=== PATIENT | female | born 1990 ===

== ENCOUNTER 2018-06-03 15:09 | Emergency (ER) | payer MEDICAID, OTHER ==
[2018-06-03 15:16] VITALS: O2SAT 99
[2018-06-03] MEDS ORDERED: Tetracaine 0.5% Ophth (OR ONLY) ONE (15:35)
[2018-06-03] MEDS ORDERED: Fluorescein 1 mg Ophthalmic Strip OU ONE (15:42)
[2018-06-03] MEDS ORDERED: Oxycodone/Acetaminophen 5/325 mg Tab PO STA (15:42)
[2018-06-03] MEDS ORDERED: Fluorescein 1 mg Ophthalmic Strip ONE (15:44)
[2018-06-03] MEDS ORDERED: Tetracaine 0.5% Ophth 2 ML BOTTLE OU ONE (15:44)
--- NOTE | 2018-06-03 15:56 | C.PDOC ---
History Of Present Illness 27 yo female come in for evaluation of B/L eye pain, light sensitivity gradually developed since this AM. Pt admits, was wearing contacts yesterday, removed last night. Otherwise, pt denies fever, chills, recent illness, headache , dizziness, FB sensation, denies any other active complaints. Ambulate to Ed for evaluation, appears in pain. Time Seen by Provider: 06/03/18 15:13 Chief Complaint (Nursing): Eye Problem History Per: Patient Onset/Duration Of Symptoms: Gradual Past Medical History Reviewed: Historical Data, Nursing Documentation, Vital Signs Vital Signs: Last Vital Signs Temp 98.3 F 06/03/18 16:03 Pulse 89 06/03/18 16:03 Resp 20 06/03/18 16:03 BP 181/103 H 06/03/18 16:03 Pulse Ox 99 06/03/18 16:04 - Medical History PMH: No Chronic Diseases Surgical History: Tonsillectomy Family History: States: No Known Family Hx - Social History Hx Alcohol Use: Yes Hx Substance Use: No - Immunization History Hx Tetanus Toxoid Vaccination: Yes Hx Influenza Vaccination: No Hx Pneumococcal Vaccination: No Review Of Systems Except As Marked, All Systems Reviewed And Found Negative. Constitutional: Negative for: Fever, Chills Eyes: Positive for: Pain, Conjunctivae Inflammation, Other (severe light sensitivity). Negative for: Vision Change ENT: Negative for: Ear Discharge, Nose Discharge, Mouth Pain, Throat Pain Cardiovascular: Negative for: Chest Pain, Palpitations Respiratory: Negative for: Cough, Shortness of Breath, Wheezing Gastrointestinal: Negative for: Nausea, Vomiting, Abdominal Pain Musculoskeletal: Negative for: Neck Pain, Back Pain Skin: Negative for: Rash Neurological: Negative for: Weakness, Numbness, Altered Mental Status, Headache , Dizziness Physical Exam - Physical Exam Appears: Well, Non-toxic, No Acute Distress Skin: Normal Color, Warm, Dry, No Rash Head: Normacephalic Eye(s): bilateral: PERRL, EOMI (no pain or limitation on extraocular movement B/ L), Other (B/L tearing and severe light sensitivity, (+) fluoresceine uptake B/ L at 5-6 o'clock. NO corneal FB. No periorbital edema or erythema.) Ear(s): Bilateral: Normal Nose: No Flaring, No Discharge, No Deformity, No Tenderness Oral Mucosa: Moist Tongue: Normal Appearing Lips: Normal Appearing Throat: No Erythema, No Drooling Neck: Trachea Midline, Supple Lymphatic: No Adenopathy (cervical) Extremity: Normal ROM, No Deformity, No Swelling Neurological/Psych: Oriented x3, Normal Speech ED Course And Treatment O2 Sat by Pulse Oximetry: 99 Pulse Ox Interpretation: Normal Progress Note: On re-evaluation, pt is afebrile, hemodynamicaly stable. NOn- toxic. PulsEOx 99% RA. B/L eyes: exam c/w corneal abrasion B/L, no pain or limitation on extraocular movement, no periorbital edema or erythema, No corneal FB. ENT: no acute findings. neck: SUpple, (-) JVD. Neuorlogicaly intact. After tetracaine opht qtt applied, pt reports moderate improvement in pain. EYe patches applied B/L. Pt instructed and was discharged with family member, who is at bedside, for further eval and tx by opht. return if any new changes. Disposition Counseled Patient/Family Regarding: Diagnosis, Need For Followup, Rx Given - Disposition Referrals: Steffen Webber [Staff Provider] - Disposition: HOME/ ROUTINE Disposition Time: 15:56 Condition: STABLE Additional Instructions: Avoid use of contacts for 1 week Take medication as prescribed Follow up with Ophthalmology in 2-3 days for re-evaluation. return to ED if any worsening or new changes. Prescriptions: Neomycin/Polymyxin/Dexamethaso [Dexamethasone/Neomycin/Polymyxin 5 Ml] 2 drop BOTHEYES Q6 #1 bottle traMADol [Ultram] 50 mg PO TID #7 tab Instructions: Corneal Abrasion Forms: [facility] ([place] Islander) - Clinical Impression Clinical Impression: Corneal abrasion
[2018-06-03] MEDS ORDERED: Oxycodone/Acetaminophen 5/325 mg Tab ONE (15:59)
[2018-06-03 16:05] VITALS: RESP 20
[2018-06-03 16:24] VITALS: BP 115/73; PULSE 68; TEMP 98.5
== END 2018-06-03 16:03 | disposition home or self-care (01) ==
LOC: C.ER 15:09
DX: S05.02XA Injury of conjunctiva and corneal abrasion without foreign body, left eye, initial encounter (principal); S05.01XA Injury of conjunctiva and corneal abrasion without foreign body, right eye, initial encounter; X58.XXXA Exposure to other specified factors, initial encounter; Y92.9 Unspecified place or not applicable

== ENCOUNTER 2019-01-21 15:34 | Emergency (ER) | payer MEDICAID, OTHER ==
[2019-01-21] MEDS ORDERED: Tdap Vaccine 0.5 ml Vial (10-64 yrs) IM ONE ×2 (15:57→16:08)
--- NOTE | 2019-01-21 17:28 | RAD ---
PROCEDURE: Radiographs of the left elbow. HISTORY: glass cut, eval for fb COMPARISON: None available. FINDINGS: BONES: No acute displaced fracture. JOINTS: No dislocation. SOFT TISSUES: Several bubbles of air are noted within the subcutaneous soft tissues of the forearm and wrist presumably due to reported laceration. Nonspecific 4 mm hyperdensity within the soft tissues of the medial ventral forearm seen solely on lateral view of uncertain significance. JOINT EFFUSION: No significant joint effusion. OTHER FINDINGS: None IMPRESSION: Several bubbles of air are noted within the subcutaneous soft tissues of the forearm and wrist presumably due to reported laceration. Correlate clinically. Nonspecific 4 mm hyperdensity within the soft tissues of the medial ventral forearm seen solely on lateral view of uncertain significance.
[2019-01-21] MEDS ORDERED: Lidocaine 1% Inj (20ml) INFIL ONE (17:46)
[2019-01-21] MEDS ORDERED: Lidocaine Hydrochloride 5 ML INJ ONE (17:55)
--- NOTE | 2019-01-21 18:16 | C.PDOC ---
History Of Present Illness 28 y/o female presents to ED with laceration to left anterior distal forearm, occurred approximately one hour prior to arrival. pt sts she cut it on glass but refuses to give any further details. pt denies trying to hurt herself. pt accompanied by . last tdap unknown. Time Seen by Provider: 01/21/19 15:45 Chief Complaint (Nursing): Abnormal Skin Integrity History Per: Patient History/Exam Limitations: no limitations Onset/Duration Of Symptoms: Hrs (1) Current Symptoms Are (Timing): Still Present Location Of Injury: Left: Forearm Quality Of Symptoms: Painful Severity: Moderate Past Medical History Reviewed: Historical Data, Nursing Documentation, Vital Signs Vital Signs: Last Vital Signs Temp 98.1 F 01/21/19 15:38 Pulse 78 01/21/19 15:38 Resp 18 01/21/19 15:38 BP 119/74 01/21/19 15:38 Pulse Ox 99 01/21/19 15:38 - Medical History PMH: No Chronic Diseases Surgical History: Tonsillectomy Family History: States: Unknown Family Hx - Social History Hx Alcohol Use: No Hx Substance Use: No - Immunization History Hx Tetanus Toxoid Vaccination: Yes Hx Influenza Vaccination: No Hx Pneumococcal Vaccination: No Review Of Systems Constitutional: Negative for: Fever, Chills Skin: Positive for: Other (laceration left forearm) Physical Exam - Physical Exam Appears: Non-toxic, Other (anxious,. tearful) Skin: Warm, Dry, Other (approx 1 -1.5 cm jagged vertically oriented laceration to distal anterior left forearm. no active bleeding. ) Head: Atraumatic, Normacephalic Extremity: Normal ROM, Other (left upper extremity- able to flex and extend all fingers. cap refill less than 2 seconds. ) Pulses: Left Radial: Normal Neurological/Psych: Oriented x3, Normal Speech, Normal Cognition ED Course And Treatment O2 Sat by Pulse Oximetry: 99 Laceration - Laceration Repair left forearm Wound Length (In cm): 1.0 Description Of Wound: Linear Anesthesia: Lidocaine 1% Wound Examination: Irrigated With Saline, No FB With Wound Exploration, No Tendon Injury With Wound Exploration Wound Closure: Suture (3-0 nylon) Suture Technique And Material Used: Interrupted (#3) Wound Complexity: Simple Medical Decision Making Medical Decision Making: pt was initially given tylenol for pain; while waiting for xray results, pt persistently crying and moaning in pain. pt was offered by toradol and motrin (after a ucg was done) but declines. xray reviewed; 4 mm ?fb noted in mid forearm; this is superior to where laceration is and doesn't seem to be related. 1810 approached patient to perform laceration repair and she doesn't want me to do it; advised she will need to wait for another provider to come in at 7 pm. . Disposition Counseled Patient/Family Regarding: Studies Performed, Diagnosis, Need For Followup - Disposition Disposition: HOME/ ROUTINE Disposition Time: 20:01 Condition: GOOD Additional Instructions: Keep wound clean and dry. Wash and dry daily, apply antibiotic ointment and cover with dressing. Suture removal in 10-14 days. Return to ER for any sign of infection. Forms: [facility] (Urdu), General Discharge Instructions, Work Excuse - Clinical Impression Clinical Impression: Laceration of left forearm without complication
[2019-01-21] MEDS ORDERED: Bacitracin 500 Units/gm Oint Foilpak UD ONE (19:52)
[2019-01-21 20:12] VITALS: BP 103/68; PULSE 69; RESP 20; TEMP 98.5; O2SAT 98
== END 2019-01-21 20:19 | disposition home or self-care (01) ==
LOC: C.ER 15:34
DX: S51.812A Laceration without foreign body of left forearm, initial encounter (principal); W25.XXXA Contact with sharp glass, initial encounter; Z23 Encounter for immunization

== ENCOUNTER 2019-02-04 21:25 | Emergency (ER) | payer SELFPAY ==
[2019-02-04 21:48] VITALS: BP 100/63; PULSE 80; RESP 20; TEMP 98.3; O2SAT 98
--- NOTE | 2019-02-04 22:42 | C.PDOC ---
History Of Present Illness 28 year old female for evaluation and suture removal. Patient had sutures to left forearm 2 weeks ago. Patient denies rash, fever, chills, injury, fall, trauma, weakness, numbness. Time Seen by Provider: 02/04/19 21:57 Chief Complaint (Nursing): Suture/Staple Removal History Per: Patient History/Exam Limitations: no limitations Onset/Duration Of Symptoms: Days Ago Current Symptoms Are (Timing): Better Location Of Injury: Left: Foot Recent travel outside of the [place]: No Additional History Per: Patient Past Medical History Reviewed: Historical Data, Nursing Documentation, Vital Signs Vital Signs: Last Vital Signs Temp 98.3 F 02/04/19 21:45 Pulse 80 02/04/19 21:45 Resp 20 02/04/19 21:45 BP 100/63 02/04/19 21:45 Pulse Ox 98 02/04/19 21:45 - Medical History PMH: No Chronic Diseases Surgical History: Tonsillectomy Family History: States: Unknown Family Hx - Social History Hx Alcohol Use: No Hx Substance Use: No - Immunization History Hx Tetanus Toxoid Vaccination: Yes Hx Influenza Vaccination: No Hx Pneumococcal Vaccination: No Review Of Systems Constitutional: Negative for: Fever, Chills Skin: Positive for: Other (left forearm sutures) Neurological: Negative for: Weakness, Numbness Physical Exam - Physical Exam Appears: Non-toxic, No Acute Distress Skin: Normal Color, Warm, Dry Head: Atraumatic, Normacephalic Eye(s): bilateral: Normal Inspection Extremity: Normal ROM, No Tenderness, Capillary Refill (< 2 seconds), No Swelling, Other (well healed and dry sutures to left forearm without erythema, swelling or bleeding/ draining. ) Pulses: Left Radial: Normal, Right Radial: Normal Neurological/Psych: Oriented x3, Normal Speech, Normal Cognition Gait: Steady ED Course And Treatment O2 Sat by Pulse Oximetry: 98 (ON RA) Pulse Ox Interpretation: Normal Progress Note: Sutures along with some scabs were removed. Patient tolerated the procedure well, area was cleaned, well healed and dry. Patient was advised to follow up with PMD. Disposition Counseled Patient/Family Regarding: Diagnosis, Need For Followup - Disposition Referrals: [facility] [Outside] Disposition: HOME/ ROUTINE Disposition Time: 22:40 Condition: STABLE Additional Instructions: Keep wound clean Apply antibacterial oint May use vit E oint Return to ER as needed Instructions: Stitches Removal Forms: [employer] (Bruneian) - Clinical Impression Clinical Impression: Removal of suture - PA / SIGNAL OPERATOR TECHNICAL / Resident Statement MD/DO has reviewed & agrees with the documentation as recorded. - Scribe Statement The provider has reviewed the documentation as recorded by the Scribe Young Morris All medical record entries made by the Scribe were at my direction and personally dictated by me. I have reviewed the chart and agree that the record accurately reflects my personal performance of the history, physical exam, medical decision making, and the department course for this patient. I have also personally directed, reviewed, and agree with the discharge instructions and disposition.
== END 2019-02-04 22:45 | disposition home or self-care (01) ==
LOC: C.ER 21:25
DX: Z48.02 Encounter for removal of sutures (principal)